=== PATIENT | female | born 1955 | race Caucasian/White ===

== ENCOUNTER 2016-05-14 19:03 | Emergency (ER) | payer OTHER ==
[2016-05-14] MEDS ORDERED: ALPRAZolam 0.5 MG TABLET PO ONE ×2 (20:10→20:19)
[2016-05-14] MEDS ORDERED: NYSTATIN SUSP 500,000 UNITS/5 ML SUSP ONE (20:16)
--- NOTE | 2016-05-14 20:22 | ER NURSING DOCUMENTATION ---
Nurse's Notes [facility] Name:Irma Ruiz Age:61 yrs Sex:Female :1955 Arrival Date:05/14/2016 Time:19:03 Bed3 Private MD:No PCP, Identified Diagnosis:Thrush, Candidal Stomatitis;Anxiety Reaction Presentation: 05/14 19:08 Presenting complaint: Patient states: started new med on Saturday, feels like she has lb ulcerations in her mouth and down her throat. hurts to swallow. tongue noted with white patches, red spots to roof of mouth. Transition of care: Home. Onset: The symptoms/episode began/occurred 3 day(s) ago. Anaphylaxis evaluation, no signs or symptoms of anaphylaxis were noted. Notified ED Physician of Dr. Currie notified. 19:08 Acuity: LONI 4 lb 19:08 Method Of Arrival: Walk In Triage Assessment: 19:14 General: Appears uncomfortable, Behavior is cooperative. Pain: Complains of pain in lb soft palate, uvula and tongue Pain does not radiate. Quality of pain is described as burning. Historical: - Allergies: No known drug Allergies; - Home Meds: 1. Mirtazapine Oral - PMHx: depressoin; - PSHx: csection; left oophorectomy; - Tetanus: < 10 years. - Ebola Screening: : Patient denies exposure to infectious person. Patient denies travel to an Ebola-affected area in the 21 days before illness onset. . - Immunization history: Flu Vaccine < 1 year. - Social history: Smoking status: Patient states was never smoker of tobacco. Patient/guardian denies using alcohol. - Code Status:: Full code. Screenin:16 Infectious Disease Risk None. Abuse screen: Denies threats or abuse. Denies injuries lb from another. Nutritional screening: No deficits noted. Assessment: 19:15 Respiratory: Airway is patent Trachea midline Respiratory effort is even, unlabored, lb Breath sounds are clear bilaterally. Vital Signs: 19:15 BP 139 / 79; Pulse 81; Resp 16; Temp 98.8; Pulse Ox 94% on R/A; Weight 76.66 kg; Height lb 5 ft. 4 in. (162.56 cm); Pain 0/10; 20:20 BP 136 / 80; Pulse 80; Resp 15; Pulse Ox 95% on R/A; lb 19:15 Body Mass Index 29.01 (76.66 kg, 162.56 cm) lb ED Course: 19:04 Patient arrived in ED. ds 19:04 No PCP, Identified is Private Physician. ds 19:08 Safia Novoa is Primary Nurse. lb 19:13 Triage completed. lb 19:15 Yasmany Currie MD is Attending Physician. ny 19:16 Valuables Remains with patient Call light in reach. lb Administered Medications: 20:02 Drug: Xanax Tablet 1 mg; Route: PO; lb 20:19 Follow up: Response: No adverse reaction lb 20:19 Drug: nystatin Suspension 281979 units; Route: PO; lb 20:19 Follow up: Response: No adverse reaction lb 20:19 Drug: Xanax Tablet 1 mg; Route: PO; lb 20:19 Follow up: Response: Pharmacy closed - take home med pack lb Outcome: 20:06 Discharge ordered by . sc 20:20 Discharged to home ambulatory. lb 20:20 Condition: stable 20:20 Discharge Assessment: Patient awake, alert and oriented x 3. No cognitive and/or functional deficits noted. Patient verbalized understanding of disposition instructions. 20:20 Instructed on discharge instructions, follow up and referral plans. no drinking with medication, no driving heavy equipment. 20:21 Patient left the ED. lb 05/16 12:03 Discharge F/U Call: Unable to reach: no answer st 12:03 Discharge F/U Call: Unable to reach: no answer st Signatures: Karrie Schroeder RN RN st Srot, [employer], Reg Reg ds Yasmany Currie MD MD ny Safia Novoa lb
--- NOTE | 2016-05-14 20:22 | ER PHYSICIAN DOCUMENTATION ---
Physician Documentation [facility] Name:Irma Ruiz Age:61 yrs Sex:Female :1955 Arrival Date:05/14/2016 Time:19:03 Bed3 Private MD:No PCP, Identified ED Yasmany Currie Disposition: 05/14/16 20:06 Discharged to Home/Self Care. Impression: Thrush, Candidal Stomatitis, Anxiety Reaction. - Condition is Fair. - Discharge Instructions: CONSUELO Oral Child - CONSUELO INFECTION: THRUSH [Child], Anxiety Disorder - PANIC ATTACK. - Prescriptions for Nystatin 100,000 unit/mL Oral Suspension - take 5 milliliter by ORAL route every 6 hours; 120 milliliter. Xanax 1 mg Oral Tablet - take 1 tablet by ORAL route every 8 hours As needed; 20 tablet. - Medical Reconciliation form form. - Follow up: Private Physician; When: 1 week; Reason: Continuance of care. - Problem is new. - Symptoms are unchanged. HPI: 05/14 20:01 This 61 yrs old Female presents to ER via Walk In with complaints of Allergic sc Reaction. 20:01 The patient presents with pain, that is acute, redness. The problem is located in the sc mouth and tongue and soft palate. Onset: The symptom(s)/episode began/occurred 1 week(s) ago. Duration: The symptoms are continuous. Modifying factors: the symptoms are aggravated by mirtazapine caused dry mouth made oral symptoms worse. bad taste and sore mouth since taking augmentin for sinusitis. Historical: - Allergies: No known drug Allergies; - Home Meds: 1. Mirtazapine Oral - PMHx: depressoin; - PSHx: csection; left oophorectomy; - Tetanus: < 10 years. - Ebola Screening: : Patient denies exposure to infectious person. Patient denies travel to an Ebola-affected area in the 21 days before illness onset. . - Immunization history: Flu Vaccine < 1 year. - Social history: Smoking status: Patient states was never smoker of tobacco. Patient/guardian denies using alcohol. - Code Status:: Full code. ROS: 20:03 Constitutional: Negative for fever, chills, and weight loss. sc Eyes: Negative for injury, pain, redness, and discharge. Neck: Negative for injury, pain, and swelling. Cardiovascular: Negative for chest pain, palpitations, and edema. Respiratory: Negative for shortness of breath, cough, wheezing, and pleuritic chest pain. Back: Negative for injury and pain. Skin: Negative for injury, rash, and discoloration. 20:03 Neuro: Negative for headache, weakness, numbness, tingling, and seizure. sc 20:03 ENT: Positive for oral white plaques and erythema and soreness. 20:03 Psych: Positive for anxiety. Exam: Constitutional: This is a well developed, well nourished patient who is awake, alert, and in no acute distress. Head/Face: Normocephalic, atraumatic. Eyes: Pupils equal round and reactive to light, extra-ocular motions intact. Lids and lashes normal. Conjunctiva and sclera are non-icteric and not injected. Cornea within normal limits. Periorbital areas with no swelling, redness, or edema. Cardiovascular: Regular rate and rhythm with a normal S1 and S2. No gallops, murmurs, or rubs. Normal PMI, no JVD. No pulse deficits. Respiratory: Lungs have equal breath sounds bilaterally, clear to auscultation and percussion. No rales, rhonchi or wheezes noted. No increased work of breathing, no retractions or nasal flaring. Skin: Warm, dry with normal turgor. Normal color with no rashes, no lesions, and no evidence of cellulitis. 20:04 Neuro: Awake and alert, GCS 15, oriented to person, place, time, and situation. ar Cranial nerves II-XII grossly intact. Motor strength 5/5 in all extremities. Sensory grossly intact. Cerebellar exam normal. Normal gait. 20:04 ENT: Mouth: Oral mucosa: dry, noted to have obvious thrush, Dental exam: normal. 20:04 Psych: Behavior/mood is anxious, Affect is animated, Oriented to person, place, time. Vital Signs: 19:15 BP 139 / 79; Pulse 81; Resp 16; Temp 98.8; Pulse Ox 94% on R/A; Weight 76.66 kg; Height lb 5 ft. 4 in. (162.56 cm); Pain 0/10; 20:20 BP 136 / 80; Pulse 80; Resp 15; Pulse Ox 95% on R/A; lb 19:15 Body Mass Index 29.01 (76.66 kg, 162.56 cm) lb MDM: 19:15 Patient medically screened. sc 20:04 Differential diagnosis: gingivitis, aphthous ulcers, gingivostomatitis, thrush. Data sc reviewed: vital signs, nurses notes, and as a result, I will discharge patient. Counseling: I had a detailed discussion with the patient and/or guardian regarding: the historical points, exam findings, and any diagnostic results supporting the discharge/admit diagnosis, the need for outpatient follow up, to return to the emergency department if symptoms worsen or persist or if there are any questions or concerns that arise at home. Dispensed Medications: 20:02 Drug: Xanax Tablet 1 mg; Route: PO; lb 20:19 Follow up: Response: No adverse reaction lb 20:19 Drug: nystatin Suspension [id number] units; Route: PO; lb 20:19 Follow up: Response: No adverse reaction lb 20:19 Drug: Xanax Tablet 1 mg; Route: PO; lb 20:19 Follow up: Response: Pharmacy closed - take home med pack lb Signatures: Yasmany Currie MD MD ar Safia Novoa lb
== END 2016-05-14 20:22 | disposition home or self-care (01) ==
LOC: ER 19:03
DX: B37.0 Candidal stomatitis (principal); F41.9 Anxiety disorder, unspecified; Z79.899 Other long term (current) drug therapy; R68.2 Dry mouth, unspecified; T43.025A Adverse effect of tetracyclic antidepressants, initial encounter
CPT/HCPCS: 99283